=== PATIENT | female | born 1975 | race Caucasian/White ===

== ENCOUNTER 2022-06-26 10:37 | Outpatient (REF) | payer OTHER, SELFPAY ==
[2022-06-26 14:41] LABS: Appearance Urine Clear; Color Urine Yellow; Glucose Urine UA Negative (Negative); Leukocyte Esterase Urine Negative (Negative); Nitrite Urine Negative (Negative); PH 6.5 (5.0-9.0); Specific Gravity - Urine <= 1.005 (1.005-1.025); Urine Blood Negative (Negative); Urine Ketones Negative (Negative); Urine Protein Negative (Neg-Trace)
== END 2022-06-26 10:38 | disposition home or self-care (01) ==
LOC: HO.MANLDS 10:37
PROVIDERS: Visit Provider Physician Assistant
DX: R30.9 Painful micturition, unspecified (principal)
CPT/HCPCS: 81003